=== PATIENT | male | born 1975 | race Caucasian/White ===

== ENCOUNTER 2019-09-25 08:42 | Emergency (ER) | payer SELFPAY ==
[~2019-09-25] VITALS: Ht 190.5 cm; Wt 108.9 kg
[~2019-09-25 08:42] MED LIST: (None)15 GM TOP; Bactrim Ds Tab1 EACH PO; Bactroban22 GM TOP; Cleocin HCl300 MG PO; Crutch1 EACH MISC; FLUC150A PO; Keflex500 MG PO; Kenalog60 ML TOP; Naprosyn500 MG PO; Norco 5-325 Ta1 EACH PO; Nystatin15 GM TOP; PRED10 PO; Percocet 5-3251 EACH PO; SACC250C PO; Vibramycin100 MG PO
[2019-09-25] MEDS ORDERED: Mupirocin22 GM TOP (11:08)
== END 2019-09-25 11:14 | disposition home or self-care (01) ==
LOC: ER 08:42
DX: L25.9 Unspecified contact dermatitis, unspecified cause (principal); Z88.2 Allergy status to sulfonamides; Z88.1 Allergy status to other antibiotic agents; F17.210 Nicotine dependence, cigarettes, uncomplicated
CPT/HCPCS: 99282

== ENCOUNTER 2020-01-05 10:29 | Emergency (ER) | payer OTHER ==
[~2020-01-05] VITALS: Ht 190.5 cm; Wt 108.9 kg
[~2020-01-05 10:29] MED LIST changes: +Mupirocin22 GM TOP
[2020-01-05 12:56] LABS: BASOPHILS ABSOLUTE AUTO 0.06 K/mm3 (0.00-0.23); BASOPHILS PERCENT AUTO 1 % (0-2); EOSINOPHILS ABSOLUTE AUTO 0.12 K/mm3 (0.00-0.68); EOSINOPHILS PERCENT AUTO 1 % (0-6); Hematocrit 47.8 % (37.0-53.0); Hemoglobin 15.8 g/dL (13.5-17.5); IMMATURE GRAN ABSOLUTE AUTO 0.02 K/mm3 (0.00-0.10); IMMATURE GRAN PERCENT AUTO 0 % (0-1); LYMPHOCYTES ABSOLUTE AUTO 2.57 K/mm3 (0.84-5.20); LYMPHOCYTES PERCENT AUTO 25 % (21-46); MONOCYTES ABSOLUTE AUTO 0.94 K/mm3 (0.16-1.47); MONOCYTES PERCENT AUTO 9 % (4-13); Mean Corpuscular HGB 29.2 pg (26.0-34.0); Mean Corpuscular HGB Conc 33.1 g/dL (31.5-36.5); Mean Corpuscular Volume 88 fL (80-100); Mean Platelet Volume 9.7 fL (9.1-12.4); NEUTROPHILS ABSOLUTE AUTO 6.68 K/mm3 (1.96-9.15); NEUTROPHILS PERCENT AUTO 64 % (41-73); Platelet Count 224 K/mm3 (150-400); RDW Coefficient Variation 12.9 % (11.7-14.2); RDW Standard Deviation 41.8 fL (35.1-46.3); Red Blood Cell Count 5.42 M/mm3 (4.30-5.90); White Blood Cell Count 10.39 K/mm3 (4.00-11.30)
[2020-01-05 13:22] LABS: Alanine Aminotransfer (ALT/SGP 40 U/L (12-78); Albumin, Blood 3.7 g/dL (3.4-5.0); Alk Phos 64 U/L (50-136); Anion Gap 7 mmol/L (6-16); Aspartate Aminotrans (AST/SGOT 9 U/L (12-37); Bilirubin, Total 0.6 mg/dL (0.1-1.0); Blood Urea Nitrogen 14 mg/dL (8-24); Bun/Creatinine Ratio 20.1 (12.0-20.0); CO2, Blood 26 mmol/L (21-32); Calcium, Blood 8.9 mg/dL (8.5-10.1); Chloride, Blood 110 mmol/L (98-108); Globulin, Blood 3.6 g/dL (2.2-4.0); Glomerular Filtration Rate >60 (60-); Glucose, Blood 101 mg/dL (70-99); Potassium, Blood 3.8 mmol/L (3.5-5.5); Sodium, Blood 143 mmol/L (136-145); Total Protein, Blood 7.3 g/dL (6.4-8.2)
[2020-01-05] MEDS ORDERED: HYDR1TAB94 PO (20:12)
[2020-01-05] MEDS ORDERED: ACETAMINOPHEN500 MG PO (20:12)
[2020-01-05] MEDS ORDERED: IBUP800 PO (20:12)
== END 2020-01-05 20:33 | disposition home or self-care (01) ==
LOC: ER 10:29
PROVIDERS: Emergency Medicine
DX: M75.02 Adhesive capsulitis of left shoulder (principal); F17.210 Nicotine dependence, cigarettes, uncomplicated; Z88.2 Allergy status to sulfonamides; Z88.1 Allergy status to other antibiotic agents
CPT/HCPCS: 20610; 73030; 73223; 76882; 80053; 85025; 85651; 86140; 86141; 93005; 93010; 96372-59; 96374-59; 99284-25; A9270; A9579; J2270

== ENCOUNTER 2020-02-10 11:28 | Emergency (ER) | payer OTHER ==
[~2020-02-10] VITALS: Ht 190.5 cm; Wt 120.2 kg
[~2020-02-10 11:28] MED LIST changes: +ACETAMINOPHEN500 MG PO; +HYDR1TAB94 PO; +IBUP800 PO
== END 2020-02-10 13:12 | disposition home or self-care (01) ==
LOC: ER 11:28
DX: M70.41 Prepatellar bursitis, right knee (principal); F17.210 Nicotine dependence, cigarettes, uncomplicated; Z88.2 Allergy status to sulfonamides; Z88.1 Allergy status to other antibiotic agents
CPT/HCPCS: 99283

== ENCOUNTER 2020-04-12 08:36 | Emergency (ER) | payer SELFPAY ==
[~2020-04-12] VITALS: Ht 190.5 cm; Wt 113.4 kg
[2020-04-12 09:28] LABS: BASOPHILS ABSOLUTE AUTO 0.06 K/mm3 (0.00-0.23); BASOPHILS PERCENT AUTO 1 % (0-2); EOSINOPHILS ABSOLUTE AUTO 0.09 K/mm3 (0.00-0.68); EOSINOPHILS PERCENT AUTO 1 % (0-6); Hematocrit 48.5 % (37.0-53.0); IMMATURE GRAN ABSOLUTE AUTO 0.02 K/mm3 (0.00-0.10); IMMATURE GRAN PERCENT AUTO 0 % (0-1); LYMPHOCYTES ABSOLUTE AUTO 1.96 K/mm3 (0.84-5.20); LYMPHOCYTES PERCENT AUTO 23 % (21-46); MONOCYTES ABSOLUTE AUTO 0.55 K/mm3 (0.16-1.47); MONOCYTES PERCENT AUTO 7 % (4-13); Mean Corpuscular HGB 29.4 pg (26.0-34.0); Mean Corpuscular Volume 89 fL (80-100); Mean Platelet Volume 9.6 fL (9.1-12.4); NEUTROPHILS ABSOLUTE AUTO 5.77 K/mm3 (1.96-9.15); NEUTROPHILS PERCENT AUTO 68 % (41-73); Platelet Count 239 K/mm3 (150-400); RDW Coefficient Variation 12.8 % (11.7-14.2); RDW Standard Deviation 41.9 fL (35.1-46.3); Red Blood Cell Count 5.45 M/mm3 (4.30-5.90); White Blood Cell Count 8.45 K/mm3 (4.00-11.30)
[2020-04-12 09:44] LABS: International Normalized Ratio 0.95; Prothrombin Time Results 10.2 Sec (9.7-11.5)
[2020-04-12 09:45] LABS: Alanine Aminotransfer (ALT/SGP 32 U/L (12-78); Albumin, Blood 3.7 g/dL (3.4-5.0); Albumin/Globulin Ratio 1.2 (0.8-1.8); Alk Phos 59 U/L (50-136); Anion Gap 5 mmol/L (6-16); Aspartate Aminotrans (AST/SGOT 9 U/L (12-37); Bilirubin, Total 0.7 mg/dL (0.1-1.0); Blood Urea Nitrogen 14 mg/dL (8-24); Bun/Creatinine Ratio 15.8 (12.0-20.0); CO2, Blood 29 mmol/L (21-32); Calcium, Blood 8.2 mg/dL (8.5-10.1); Chloride, Blood 108 mmol/L (98-108); Creatinine, Blood 0.89 mg/dL (0.60-1.20); Globulin, Blood 3.2 g/dL (2.2-4.0); Glomerular Filtration Rate >60 (60-); Glucose, Blood 107 mg/dL (70-99); Sodium, Blood 142 mmol/L (136-145); Total Protein, Blood 6.9 g/dL (6.4-8.2)
[2020-04-12] MEDS ORDERED: DICL75ER PO (11:17)
[2020-04-12] MEDS ORDERED: Monodox100 MG PO (11:17)
[2020-04-12] MEDS ORDERED: HYDR1TAB94 PO (11:19)
[2020-04-12] MEDS ORDERED: CRUTCH4 XX (11:20)
== END 2020-04-12 11:42 | disposition home or self-care (01) ==
LOC: ER 08:36
PROVIDERS: Physician Assistant
DX: L03.115 Cellulitis of right lower limb (principal); Z88.2 Allergy status to sulfonamides; Z88.1 Allergy status to other antibiotic agents; Z87.891 Personal history of nicotine dependence
CPT/HCPCS: 20610; 36415; 73564; 80053; 83605; 84145; 85025; 85610; 87040; 87070; 87075; 87205; 96374-59; 99283-25; J1885

== ENCOUNTER 2020-05-13 17:52 | Emergency (ER) | payer SELFPAY ==
[~2020-05-13] VITALS: Ht 190.5 cm; Wt 113.4 kg
[~2020-05-13 17:52] MED LIST changes: +CRUTCH4 XX; +DICL75ER PO; +Monodox100 MG PO
[2020-05-13] MEDS ORDERED: Mupirocin22 GM TOP (18:54)
[2020-05-13] MEDS ORDERED: Cleocin HCl300 MG PO (18:54)
== END 2020-05-13 18:09 | disposition home or self-care (01) ==
LOC: ER 17:52
DX: L03.012 Cellulitis of left finger (principal); N48.1 Balanitis; F17.210 Nicotine dependence, cigarettes, uncomplicated; Z88.2 Allergy status to sulfonamides; Z88.1 Allergy status to other antibiotic agents; Z79.899 Other long term (current) drug therapy
CPT/HCPCS: 10160; 99282-25

== ENCOUNTER 2021-06-06 15:16 | Emergency (ER) | payer SELFPAY ==
[~2021-06-06] VITALS: Ht 193 cm; Wt 122.5 kg
[2021-06-06] MEDS ORDERED: LIDO700A20 TOP (19:37)
[2021-06-06] MEDS ORDERED: CYCL10 PO (19:37)
== END 2021-06-06 19:45 | disposition home or self-care (01) ==
LOC: ER 15:16
DX: M54.16 Radiculopathy, lumbar region (principal)
CPT/HCPCS: 72148; 96372; 99283-25; A9270; J1885